=== PATIENT | female | born 1945 | race Hispanic/Latino ===

== ENCOUNTER → 2017-12-20 | Outpatient (CLI) | payer OTHER ==
[~2017-12-20] VITALS: Ht 154.9 cm; Wt 76.2 kg
[~2017-12-20] MED LIST: REGADENOSON 0.4 MG/5 ML PF SYG IVP SCH
== END | disposition home or self-care (01) ==
LOC: SHCH 07:50
PROVIDERS: ATTEND Internal Medicine Cardiovascular Disease
DX: I25.10 Atherosclerotic heart disease of native coronary artery without angina pectoris (principal); I73.9 Peripheral vascular disease, unspecified
CPT/HCPCS: 78452; 93017; 96374; A9500 ×2; J2785

== ENCOUNTER → 2017-12-23 | Outpatient (CLI) | payer OTHER | END | disposition home or self-care (01) | LOC: RAH 13:05 | PROVIDERS: ATTEND Internal Medicine Cardiovascular Disease | DX: M47.896 Other spondylosis, lumbar region (principal); M54.16 Radiculopathy, lumbar region; M48.061 Spinal stenosis, lumbar region without neurogenic claudication | CPT/HCPCS: 72148 ==

== ENCOUNTER → 2019-03-01 | Outpatient (CLI) | payer OTHER | END | disposition home or self-care (01) | LOC: RAH 09:43 | PROVIDERS: ATTEND Family Medicine | DX: Z12.31 Encounter for screening mammogram for malignant neoplasm of breast (principal) | CPT/HCPCS: 77067 ==

== ENCOUNTER → 2020-03-18 | Outpatient (CLI) | payer OTHER | END | disposition home or self-care (01) | LOC: RAH 08:54 | PROVIDERS: ATTEND Family Medicine | DX: Z12.31 Encounter for screening mammogram for malignant neoplasm of breast (principal); N63.11 Unspecified lump in the right breast, upper outer quadrant | CPT/HCPCS: 77067 ==

== ENCOUNTER → 2020-05-08 | Outpatient (CLI) | payer OTHER | END | disposition home or self-care (01) | LOC: RAH 08:04 | PROVIDERS: ATTEND Family Medicine | DX: N63.11 Unspecified lump in the right breast, upper outer quadrant (principal); R92.8 Other abnormal and inconclusive findings on diagnostic imaging of breast | CPT/HCPCS: 76641; 77065 ==

== ENCOUNTER → 2021-04-16 | Outpatient (CLI) | payer OTHER | END | disposition home or self-care (01) | LOC: RAH 14:12 | PROVIDERS: ATTEND Family Medicine | DX: Z12.31 Encounter for screening mammogram for malignant neoplasm of breast (principal) | CPT/HCPCS: 77067 ==

== ENCOUNTER → 2022-04-17 | Outpatient (CLI) | payer OTHER | END | disposition home or self-care (01) | LOC: RAH 09:26 | PROVIDERS: ATTEND Family Medicine | DX: Z12.31 Encounter for screening mammogram for malignant neoplasm of breast (principal) | CPT/HCPCS: 77067 ==

== ENCOUNTER 2022-07-13 12:47 | Emergency (ER) | payer OTHER ==
[~2022-07-13] VITALS: Ht 154.9 cm; Wt 73.0 kg
[2022-07-13 13:23] LABS: BASOPHILS % (AUTO) 0.3 % (0.0-5.0); EOSINOPHILS % (AUTO) 1.7 % (0.0-8.0); HEMATOCRIT 39.8 % (36-48); LYMPHOCYTES % (AUTO) 18.7 % (21.0-51.0); MEAN CORPUSCULAR HEMOGLOBIN 29.1 pg (27.0-33.0); MEAN CORPUSCULAR HGB CONC 33.4 g/dL (32.0-36.0); MEAN CORPUSCULAR VOLUME 87.1 fL (79-99); MONOCYTES % (AUTO) 7.5 % (3.0-13.0); NEUTROPHILS % (AUTO) 71.5 % (40.0-77.0); PLATELET COUNT (AUTO) 237 K/uL (130-400); RED BLOOD CELL COUNT(AUTO) 4.57 MIL/uL (4.00-5.50); RED CELL DISTRIBUTION WIDTH 13.4 % (11.0-15.5); WHITE BLOOD COUNT (AUTO) 11.6 K/uL (4.8-10.8)
[2022-07-13 13:28] LABS: APPEARANCE,URINE CLEAR (CLEAR); BILIRUBIN,URINE NEGATIVE (NEGATIVE); COLOR,URINE LIGHT-YELLOW (YELLOW); GLUCOSE, URINE (UA) TRACE mg/dL (NEGATIVE); KETONES,URINE NEGATIVE (NEGATIVE); LEUKOCYTE ESTERASE ,URINE NEGATIVE Leu/uL (NEGATIVE); NITRATE,URINE NEGATIVE (NEGATIVE); OCCULT BLOOD,URINE NEGATIVE (NEGATIVE); PROTEIN,URINE NEGATIVE (NEGATIVE); UROBILINOGEN,URINE 0.2 mg/dL (0.2-1.0)
[2022-07-13 13:32] LABS: CREATININE 0.9 mg/dL (0.5-1.5); POTASSIUM 4.2 mmol/L (3.5-5.1)
[2022-07-13 13:33] LABS: RBC,URINE 0-1 /HPF (0-1); WBC,URINE 0-1 /HPF (0-1)
[2022-07-13 13:37] LABS: ALBUMIN 4.1 g/dL (3.5-5.0); TOTAL PROTEIN, SERUM 8.3 g/dL (6.0-8.3)
[2022-07-13] MEDS ORDERED: DEXTROSE 50%-WATER 50 ML DISP.SYRIN IV ONE ×2 (15:23→15:30)
[2022-07-13] MEDS ORDERED: IOHEXOL-350 75 ML VIAL IV ONE (15:50)
[2022-07-13] MEDS ORDERED: POLY17PO4 PO (16:32)
[2022-07-13] MEDS ORDERED: DOCU-116 PO (16:32)
[2022-07-13 16:47] VITALS: BP 170/62
== END 2022-07-13 16:49 | disposition home or self-care (01) ==
LOC: EDH 12:47
DX: K59.00 Constipation, unspecified (principal); E11.9 Type 2 diabetes mellitus without complications; E78.00 Pure hypercholesterolemia, unspecified; Z98.890 Other specified postprocedural states; Z90.49 Acquired absence of other specified parts of digestive tract
CPT/HCPCS: 99285; 74177; 96374; 80053; 85025; 82948 ×2; 81001; 36415; J7070; Q9967

== ENCOUNTER → 2023-04-19 | Outpatient (CLI) | payer OTHER ==
[~2023-04-19] MED LIST changes: +DOCU-116 PO; +POLY17PO4 PO; -REGADENOSON 0.4 MG/5 ML PF SYG IVP SCH
== END | disposition home or self-care (01) ==
LOC: RAH 09:57
PROVIDERS: ATTEND Family Medicine
DX: Z12.31 Encounter for screening mammogram for malignant neoplasm of breast (principal); N63.41 Unspecified lump in right breast, subareolar
CPT/HCPCS: 77067

== ENCOUNTER → 2024-04-20 | Outpatient (CLI) | payer OTHER ==
--- NOTE | 2024-04-20 12:12 | HMCIMG ---
SCREENING MAMMOGRAM REASON: Annual Exam COMPARISON: 04/19/2023 TECHNIQUE: CC and MLO views of the bilateral breasts were performed.CAD was performed as well. FINDINGS: Parenchymal density: There are scattered areas of fibroglandular density. There are no focal mass lesions. There are no pathologic appearing calcifications. There is no evidence of architectural distortion or skin thickening. IMPRESSION: Normal screening mammogram The patient was entered into a reminder system with a target due date for their next mammogram. BI-RADS CATEGORY 1: NEGATIVE Recommend monthly self breast exam as well as annual clinical examination. A negative x-ray should not delay biopsy if a dominant or clinically suspicious mass is present, since 8-10% of cancers are not identified by mammography. Dense breasts particularly, may obscure an underlying neoplasm. Some of these may be detected clinically and therefore, clinical examination is an essential part of breast evaluation.
== END | disposition home or self-care (01) ==
LOC: RAH 08:55
PROVIDERS: ATTEND Family Medicine
DX: Z12.31 Encounter for screening mammogram for malignant neoplasm of breast (principal); R92.323 Mammographic fibroglandular density, bilateral breasts
CPT/HCPCS: 77067

== ENCOUNTER → 2024-08-08 | Outpatient (CLI) | payer OTHER ==
--- NOTE | 2024-08-08 10:14 | HMCIMG ---
MR SPINAL CANAL, LUMBAR WO CON HISTORY: Radiculopathy COMPARISON: None TECHNIQUE: MRI of the lumbar spine was performed utilizing multiple pulse sequences in axial , coronal and sagittal plane. Patient was not given contrast through intravenous route. FINDINGS: Endplate degenerative changes with disc space narrowings are seen worse at T10-11, T11-T12 and T12-L1 levels. No abnormal signal intensity is seen of the visualized bony structure. No loss of vertebral height is seen. There is straightening of normal lumbar curvature which may be related to muscle spasm or positioning. Degenerative disc signals are present at all lumbar spine levels. Visualized distal conus is unremarkable. There are multiple left renal cysts with the largest measuring 13 mm. At the T12-L1 level, there is spondylotic disc with bilateral ligamentum flavum hypertrophy causing anterior thecal sac compression with bilateral lateral recess stenosis and and mild bilateral neural foraminal stenosis. The thecal sac measures approximately 5.7 mm in its anterior posterior dimension. At the L1-L2 level, there is spondylotic disc with bilateral ligamentum flavum hypertrophy causing anterior thecal sac compression with bilateral lateral recess stenosis and and mild bilateral neural foraminal stenosis. The thecal sac measures approximately 7.2 mm in its anterior posterior dimension. At the L2-L3 level, there is spondylotic disc with bilateral ligamentum flavum hypertrophy causing anterior thecal sac compression with bilateral lateral recess stenosis and and mild bilateral neural foraminal stenosis. The thecal sac measures approximately 5.5 mm in its anterior posterior dimension. At the L3-L4 level, there is spondylotic disc with bilateral ligamentum flavum hypertrophy and disc protrusion causing anterior thecal sac compression with bilateral lateral recess stenosis and bilateral neural foraminal stenosis. The thecal sac measures approximately 4.2 mm in its anterior posterior dimension. At the L4-5 level, there is spondylotic disc with central disc protrusion/herniation, bilateral ligamentum flavum hypertrophy and bilateral facet hypertrophy causing anterior thecal sac compression with bilateral lateral recess stenosis and bilateral neural foraminal stenosis. The thecal sac measures approximately 3.5 mm in its anterior posterior dimension. At the L5-S1 level, there is spondylotic disc with central disc protrusion/herniation with bilateral ligamentum flavum hypertrophy causing anterior thecal sac compression with bilateral lateral recess stenosis and bilateral neural foraminal stenosis. The thecal sac measures approximately 4.8 mm in its anterior posterior dimension. IMPRESSION: 1. 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
== END | disposition home or self-care (01) ==
LOC: RAH 07:34
PROVIDERS: ATTEND Family Medicine
DX: M47.817 Spondylosis without myelopathy or radiculopathy, lumbosacral region (principal); M47.26 Other spondylosis with radiculopathy, lumbar region; M48.061 Spinal stenosis, lumbar region without neurogenic claudication; M47.25 Other spondylosis with radiculopathy, thoracolumbar region; M51.369 Other intervertebral disc degeneration, lumbar region without mention of lumbar back pain or lower extremity pain; N28.1 Cyst of kidney, acquired; M48.05 Spinal stenosis, thoracolumbar region
CPT/HCPCS: 72148

== ENCOUNTER 2025-03-19 23:59 | Emergency (ER) | payer OTHER ==
[~2025-03-19] VITALS: Ht 157.5 cm; Wt 59.0 kg
[2025-03-20 00:26] VITALS: TEMP 97.6
[2025-03-20 00:35] LABS: IMMATURE GRANULOCYTE ABSOLUTE 0.03 K/uL (0-1); NUCLEATED RED BLOOD CELLS 0.0 % (0.0-0.19); PLATELET COUNT (AUTO) 181 K/uL (130-400); RED BLOOD CELL COUNT(AUTO) 4.23 MIL/uL (4.00-5.50); RED CELL DISTRIBUTION WIDTH 13.0 % (11.0-15.5); WHITE BLOOD COUNT (AUTO) 8.0 K/uL (4.8-10.8)
[2025-03-20 00:45] LABS: CREATININE 0.8 mg/dL (0.5-1.0); GLOMERULAR FILTR. RATE CALC 76.0 mL/min (>90); GLUCOSE,RANDOM 166.0 mg/dL (70-105); SODIUM SERUM 130.0 mmol/L (136-145); UREA NITROGEN, BLOOD 12.0 mg/dL (7-18)
[2025-03-20 00:49] LABS: ASPARTATE AMINOTRANSFERASE 17.0 U/L (10-37); CREATINE KINASE, TOTAL 110.0 U/L (21-232); TOTAL PROTEIN, SERUM 8.0 g/dL (6.0-8.3)
--- NOTE | 2025-03-20 00:49 | ERN ---
ED Note History of Present Illness Stated Complaint: C/O ABD PAIN,NAUSEA, LEFT SHOULDER PAIN Chief Complaint: Abdominal Pain Time Seen by MD: 00:17 Time Seen by Midlevel: 00:17 Dictation: The patient is a 79-year-old female with a history of diabetes, hysterectomy who presents to the emergency department with multiple complaints. Patient reports that she started with nontraumatic left shoulder pain that radiates to her left chest onset today. Patient reports associated nausea and an episode of dizzine ss. Patient also reports generalized abdominal pain and weakness. Denies any vomiting, denies any falls or recent injuries, denies any fevers, reports history of constipation reports she had two bowel movements today. Patient denies any current dizziness. Allergies: Coded Allergies: No Known Drug Allergies (Unverified Allergy, Unknown, 12/17/17) Home Meds Active Scripts Polyethylene Glycol 3350 (Miralax) 17 Gm Powd.pack, 17 GM PO DAILY for constipation, #20 PACKET 0 Refills Prov:BRYAN CORDERO MD 07/13/22 Docusate Sodium (Colace) 100 Mg Capsule, 100 MG PO TID for constipation, #30 CAP 0 Refills Prov:BRYAN CORDERO MD 07/13/22 Past Medical History Past Medical History: Diabetes-Type II, High Cholesterol Surgical History: Hysterectomy, Other Surgical History Other: NECK SURGERY Social History: Negative, Lives with family RN Note Reviewed/Agreed w/PFSH: Yes Review of System Dictation Constitutional: Negative for fever,chills, and weight loss Eyes: Negative for injury, pain,redness, and discharge ENT: Negative for injury,pain or swelling Cardiovascular: Negative for palpitations, and edema positive for chest pain Respiratory: Negative for shortness of breath, cough, and wheezing, Abdomen/GI: Negative for vomiting, diarrhea, and constipation positive for abdominal pain, nausea Back: Negative for injury and pain : Negative for injury, bleeding and discharge MS/Extremity: Negative for injury and deformity positive for left shoulder pain Skin: Negative for rash, and discoloration Neuro: Negative for headache, weakness, numbness, tingling, and seizure Psych: Negative for suicide ideation, homicidal ideation, and hallucinations Initial Vital Sign VS Vital Signs Date Time Temp Pulse Resp B/P (MAP) Pulse Ox O2 Delivery O2 Flow Rate FiO2 03/20/25 00:02 97.2 86 20 183/84 100 Room Air 03/20/25 00:26 0 21 Physical Exam Dictation Vital Signs reviewed General Appearance: Alert, oriented x 3, no acute distress, well developed, nourished. Head and Face: non-traumatic. Eyes: PERRL, pink conjunctivas, eyelid no trauma, anterior chamber with arcus senilis. Ears: Pinnas intact and no signs of trauma or erythema ear canals clear and no discharge TM no erythema Nose: No discharge, no bleeding. Oropharynx: Mouth normal, tongue pink. pharynx clear,no erythema, tonsils no exudates, no abscesses noted, mucous membrane moist Neck: Supple, non-tender, no thyromegaly, no masses, no JVD, no bruits Breast:Deferred Chest:No tenderness, no crepitus, no paradoxical movement, no retractions Lungs:Clear, well-ventilated, symmetric, no rales, no wheezing, no rhonchi, no stridor, good breath sounds bilaterally Heart: Regular rate, regular rhythm, no murmur, no gallops Vascular: no peripheral edema, Abdomen: Soft, positive bowel sounds, nondistended, no guarding, nontender, no rebound, no masses no hepatomegaly, no splenomegaly, no Nolan's sign, no hernias. Rectal: Deferred Genital: Deferred Neurological: Normal speech, motor function intact, sensory function intact , upper extremities equal in strength, lower extremities equal in strength Musculoskeletal: Neck nontender, full range of motion, back nontender, full range of motion, Extremities: nontender, full range of motion Skin: Color pink, dry, no turgor, no rash, no lacerations, no abrasions, no contusions. Lymphatic: Deferred Results (Laboratory/Radiology) Laboratory/Radiology Laboratory Tests Test 03/20/25 00:25 03/20/25 00:36 03/20/25 02:04 White Blood Count 8.0 K/uL (4.8-10.8) Red Blood Count 4.23 MIL/uL (4.00-5.50) Hemoglobin 12.4 g/dL (12.0-16.0) Hematocrit 36.0 % (36-48) Mean Corpuscular Volume 85.1 fL (79-99) Mean Corpuscular Hemoglobin 29.3 pg (27.0-33.0) Mean Corpuscular Hemoglobin Concent 34.4 g/dL (32.0-36.0) Red Cell Distribution Width 13.0 % (11.0-15.5) Platelet Count 181 K/uL (130-400) Mean Platelet Volume 9.9 fL (7.5-10.5) Immature Granulocyte % (Auto) 0.4 % (0-1) Neutrophils (%) (Auto) 64.6 % (40.0-77.0) Lymphocytes (%) (Auto) 20.9 % (21.0-51.0) L Monocytes (%) (Auto) 9.6 % (3.0-13.0) Eosinophils (%) (Auto) 3.9 % (0.0-8.0) Basophils (%) (Auto) 0.6 % (0.0-5.0) Neutrophils # (Auto) 5.2 K/uL (1.8-7.7) Lymphocytes # (Auto) 1.7 K/uL (1.0-4.8) Monocytes # (Auto) 0.8 K/uL (0.1-1.0) Eosinophils # (Auto) 0.31 K/uL (0.00-0.70) Basophils # (Auto) 0.05 K/uL (0.00-0.20) Absolute Immature Granulocyte (auto 0.03 K/uL (0-1) Nucleated Red Blood Cells 0.0 % (0.0-0.19) Sodium Level 130 mmol/L (136-145) L Potassium Level 4.1 mmol/L (3.5-5.1) Chloride Level 94 mmol/L (101-111) L Carbon Dioxide Level 30 mmol/L (21-32) Blood Urea Nitrogen 12 mg/dL (7-18) Creatinine 0.8 mg/dL (0.5-1.0) Glomerular Filtration Rate Calc 76 mL/min (>90) Random Glucose 166 mg/dL (70-105) H Total Calcium 9.5 mg/dL (8.5-10.1) Total Bilirubin 0.4 mg/dL (0.2-1.0) Direct Bilirubin 0.1 mg/dL (0.0-0.3) Aspartate Amino Transf (AST/SGOT) 17 U/L (10-37) Alanine Aminotransferase (ALT/SGPT) 17 U/L (12-78) Alkaline Phosphatase 81 U/L (50-136) Total Creatine Kinase 110 U/L (21-232) Troponin I High Sensitivity 6 ng/L (4-50) 6 ng/L (4-50) Total Protein 8.0 g/dL (6.0-8.3) Albumin 4.2 g/dL (3.5-5.0) Lipase 30 U/L (16-77) Urine Color COLORLESS (YELLOW) Urine Appearance CLEAR (CLEAR) Urine pH 7.5 (5.0-8.0) Urine Specific [place] 1.004 (1.001-1.031) Urine Protein NEGATIVE mg/dL (NEGATIVE) Urine Glucose (UA) 70 mg/dL (NEGATIVE) H Urine Ketones NEGATIVE mg/dL (NEGATIVE) Urine Occult Blood NEGATIVE (NEGATIVE) Urine Nitrate NEGATIVE (NEGATIVE) Urine Bilirubin NEGATIVE mg/dL (NEGATIVE) Urine Urobilinogen 0.2 mg/dL (0.2-1.0) Urine Leukocyte Esterase NEGATIVE [place]/uL Urine RBC 0-1 /HPF (0-1) Urine WBC 0-1 /HPF (0-1) Urine Squamous Epithelial Cells RARE /HPF (0-2) Urine Bacteria None /HPF (None Seen) REASON: ABD PAIN ORDERING PHYSICIAN: ZACH BURGOS [employer]OLLEY DRIVER PROCEDURE: ABD PEL WO - CT ABDOMEN/PELVIS W/O CONTRAST EXAM: CT Abdomen and Pelvis without V contrast CLINICAL HISTORY: Pain. TECHNIQUE: Thin collimated axial CT images of the abdomen and pelvis were obtained, with sagittal and coronal reformatted images also submitted. CT scan is done according to ALARA (As Low As Reasonably Achievable). CONTRAST: None COMPARISON: Prior CT abdomen and pelvis dated July 13, 2022. FINDINGS: Unremarkable visualized lung parenchyma. Scattered coronary artery calcifications. Normal cardiac size. No focal abnormality within the liver, gallbladder, pancreas, spleen, adrenals, or kidneys. There is no obvious bowel wall thickening. Bowel loops are normal in caliber without evidence of obstruction or ileus. The appendix is normal. There is no abnormality within the urinary bladder. Post-hysterectomy status. No adnexal mass. The aorta and IVC are limited in evaluation due to a lack of intravenous contrast. Diffuse atherosclerotic calcification of the origin of the left renal artery, infrarenal aorta, and common iliac arteries. No lymphadenopathy. No free fluid. There is no acute osseous abnormality. Multilevel degenerative facet arthropathy in the lumbar spine. Moderate spinal canal stenosis at the L4-L5 level. Degenerative changes in the bilateral sacroiliac and superolateral hip joint. IMPRESSIONS: No acute process in the abdomen or pelvis. Diffuse atherosclerotic vascular disease of the abdominal aorta and branches as described. Compared with the prior study, there is no significant change in the interval. /[place] REASON: pain ORDERING PHYSICIAN: ZACH BURGOS [employer]OLLEY [employer]IVER PROCEDURE: SHOL 2V LT - SHOULDER COMP 2+VWS LT EXAM: CR left Shoulder, 3 Views. CLINICAL HISTORY: pain COMPARISON: None provided. FINDINGS: BONES: No acute fracture or aggressively appearing osseous lesion. JOINTS: No dislocation. There is evidence of a mildly reduced left acromio-clavicular joint space, a few osteophytes, and mild soft tissue swelling around the joint space, suggestive of degenerative sequelae. A few osteophytes are also seen around the humeral head. SOFT TISSUES: The soft tissues are unremarkable. IMPRESSION: No acute abnormality was evident on examination of the right shoulder. No acute fracture or dislocation. Mild degenerative osteoarthritis of the left acromio-clavicular and gleno-humeral joint. /[place] REASON: pain ORDERING PHYSICIAN: ZACH BURGOS PROCEDURE: CXR1VW - CHEST 1VW EXAM: CR Chest, 1 View. CLINICAL HISTORY: pain COMPARISON: Compared with the previous X-ray. FINDINGS: LUNGS: There is no mass, infiltrate, or acute pulmonary abnormality. PLEURAL SPACES: No evidence of pleural effusion or pneumothorax. MEDIASTINUM: The cardiomediastinal silhouette is within normal limits. BONES: No acute osseous abnormality. IMPRESSION: No acute cardiopulmonary pathology is evident. No significant interval changes /[place] Labs Reviewed?: Yes EKG: (+) rhythm (Sinus rhythm ) EKG Comment: Date:03/20/2025 Time:0024 Ventricular rate:82 GA interval:203 QRS duration:82 QT/QTc:369/431 EKG interpretation: Sinus rhythm Reviewed by ED Attending no STEMI ED Course ED Course Orders Procedure Category Date Status Time Vital Signs Per CPOE 03/20/25 Transmitted Routine 00:14 Saline Lock Iv CPOE 03/20/25 Transmitted 00:14 Cbc With Differential LAB 03/20/25 Complete 00:14 Lipase LAB 03/20/25 Complete 00:14 Urinalysis Profile LAB 03/20/25 Complete 00:14 Basic Metabolic Panel LAB 03/20/25 Complete 00:14 12 Lead Ekg Tracing- EKG 03/20/25 Logged Technical 00:30 Troponin I High LAB 03/20/25 Complete Sensitivity 00:32 Chest 1vw RAD 03/20/25 Resulted 00:32 Shoulder Comp 2+Vws Lt RAD 03/20/25 Resulted 00:32 Pantoprazole 40mg Inj PHA 03/20/25 Complete (Protonix 40mg Inj 01:00 Ondansetron 4mg Inj PHA 03/20/25 Complete (Zofran 4mg Inj) 01:00 0.9%Nacl 1000ml (Ns PHA 03/20/25 In Process 1000ml) 01:00 Creatine Kinase, Total LAB 03/20/25 Complete 00:25 Hepatic Function Panel LAB 03/20/25 Complete 00:25 Ct Abdomen/Pelvis W/O CT 03/20/25 Resulted Contrast 00:55 Troponin I High LAB 03/20/25 Complete Sensitivity 01:55 Current Medications Medications (Trade) Dose Ordered Sig/Fly Route PRN Reason Start Time Stop Time Status Last Admin Dose Admin Ondansetron HCl (zoFRAN 4MG INJ) 4 mg ONCE ONCE IVP 03/20/25 01:00 03/20/25 01:01 DC 03/20/25 01:39 Pantoprazole Sodium (PROTonix 40MG INJ) 40 mg ONCE ONCE IVP 03/20/25 01:00 03/20/25 01:01 DC 03/20/25 01:39 Sodium Chloride 1,000 ml @ 125 mls/hr ONCE ONCE IV 03/20/25 01:00 03/20/25 08:59 03/20/25 01:38 Vital Signs Date Time Temp Pulse Resp B/P (MAP) Pulse Ox O2 Delivery O2 Flow Rate FiO2 03/20/25 01:25 76 16 161/61 98 Room Air* 0 03/20/25 00:26 97.5 88 17 181/61 98 Room Air* 0 03/20/25 00:02 97.2 86 20 183/84 100 Room Air HEART Score Response (Comments) Value History: Low suspicion (0) 0 EKG: Normal 0 Age: > 65yrs (+2) 2 Risk Factors: 1-2 risk factors (+1) 1 Initial Troponin: Normal limit (0) 0 Total 3 Medical Decision Making [facility] MDM: The patient is a 79-year-old female with a history of diabetes, hysterectomy who presents to the emergency department with multiple complaints. Patient reports that she started with nontraumatic left shoulder pain that radiates to her left chest onset today. Patient reports associated nausea and an episode of dizziness. Patient also reports generalized abdominal pain and weakness. Denies any vomiting, denies any falls or recent injuries, denies any fevers, reports history of constipation reports she had two bowel movements today. Patient denies any current dizziness. CBC showed no leukocytosis, no anemia, chemistry showed mild hyponatremia, hypochloremia, normal lipase,, normal liver enzymes, urinalysis unremarkable. Troponins were negative x2 abdomen CT showed no acute pathology. Chest x-ray showed no acute pathology. Shoulder x-ray showed osteoarthritis of the left shoulder. Patient's pain is exacerbated with movement. Patient otherwise in no acute distress, nontoxic appearance. We will be discharged to follow up with PCP. Differential diagnosis: ACS, arthritis of the shoulder, shoulder dislocation, gastroenteritis, gastritis, pancreatitis Need for hospitalization: Patient does not meet criteria for hospitalization. There are no social concerns with this patient. DX & DISP Disposition: Discharge Departure Impression: Primary Impression: Abdominal pain Additional Impression: Osteoarthritis of left shoulder Condition: Stable Scripts Acetaminophen (Tylenol) 325 Mg Tablet 1-2 TAB PO QIDP PRN for pain or fever for 7 Days, #60 TAB 0 Refills Prov: ZACH BURGOS [employer]OLLEY [employer]IVER 03/20/25 Ondansetron (Ondansetron Odt) 4 Mg Tab.rapdis 4 MG PO Q6HPRN PRN for nausea, #7 TAB 0 Refills Prov: ZACH BURGOS [employer]OLLEY DRIVER 03/20/25 Additional Instructions: Your labs were unremarkable. Your chest x-ray not show any abnormalities. Your shoulder x-ray did show you have some arthritis severe left shoulder. The CT scan did not show any acute pathology. Please follow up with your primary doctor in 1-2 days. If anything worsens please return to ER. FOLLOW-UP WITH PRIMARY CARE PROVIDER IN 1 TO 2 DAYS. TAKE MEDICATIONS DIRECTED HERE IN THE EMERGENCY ROOM. OKAY TO CONTINUE HOME MEDICATIONS UNLESS OTHERWISE DISCUSSED DURING YOUR VISIT IN THE EMERGENCY ROOM TODAY. RETURN TO YOUR NEAREST EMERGENCY ROOM IF SYMPTOMS WORSEN OR IF THERE IS NO IMPROVEMENT. CALL 911 IF YOU NEED IMMEDIATE ASSISTANCE. TAKE TYLENOL [id number] NEEDED AND IF NO CONTRAINDICATIONS ARE PRESENT. INCREASE ORAL HYDRATION. A WOUND CULTURE OR URINE CULTURE WAS ORDERED HERE IN THE EMERGENCY ROOM DEPARTMENT PLEASE FOLLOW-UP WITH PRIMARY CARE PROVIDER AND ADVISE THEM TO GET REPEAT PORTS FROM OUR FACILITY. IF YOU HAD ANY LEN WRAP/SPLINTS THAT WERE APPLIED HERE, PLEASE DO NOT REMOVE THEM UNTIL YOU SEE YOUR PRIMARY CARE OR SPECIALTY. Referrals: SHUN PATEL MD (PCP) GLORIA MANNING MD Time of Disposition: 03:05 I have reviewed the case, and I agree with, Diagnosis and Plan ZACH BURGOS [employer] TROLLEY DRIVER Mar 20, 2025 00:49
[2025-03-20 01:00] LABS: ADD UA MICROSCOPIC YES; APPEARANCE,URINE CLEAR (CLEAR); GLUCOSE, URINE (UA) 70 mg/dL (NEGATIVE); LEUKOCYTE ESTERASE ,URINE NEGATIVE Leu/uL (NEGATIVE); NITRATE,URINE NEGATIVE (NEGATIVE); OCCULT BLOOD,URINE NEGATIVE (NEGATIVE)
[2025-03-20 01:01] LABS: SQUAMOUS EPITHELIAL CELL,UR RARE /HPF (0-2)
--- NOTE | 2025-03-20 01:33 | HMCIMG ---
EXAM: CR Chest, 1 View. CLINICAL HISTORY: pain COMPARISON: Compared with the previous X-ray. FINDINGS: LUNGS: There is no mass, infiltrate, or acute pulmonary abnormality. PLEURAL SPACES: No evidence of pleural effusion or pneumothorax. MEDIASTINUM: The cardiomediastinal silhouette is within normal limits. BONES: No acute osseous abnormality. IMPRESSION: No acute cardiopulmonary pathology is evident. No significant interval changes /[place]
--- NOTE | 2025-03-20 01:33 | HMCIMG ---
EXAM: CR left Shoulder, 3 Views. CLINICAL HISTORY: pain COMPARISON: None provided. FINDINGS: BONES: No acute fracture or aggressively appearing osseous lesion. JOINTS: No dislocation. There is evidence of a mildly reduced left acromio-clavicular joint space, a few osteophytes, and mild soft tissue swelling around the joint space, suggestive of degenerative sequelae. A few osteophytes are also seen around the humeral head. SOFT TISSUES: The soft tissues are unremarkable. IMPRESSION: No acute abnormality was evident on examination of the right shoulder. No acute fracture or dislocation. Mild degenerative osteoarthritis of the left acromio-clavicular and gleno-humeral joint. /[place]
[2025-03-20] MEDS: 0.9%NACL 1000ML 1,000 ML IV ONE (01:38)
--- NOTE | 2025-03-20 02:58 | HMCIMG ---
EXAM: CT Abdomen and Pelvis without V contrast CLINICAL HISTORY: Pain. TECHNIQUE: Thin collimated axial CT images of the abdomen and pelvis were obtained, with sagittal and coronal reformatted images also submitted. CT scan is done according to ALARA (As Low As Reasonably Achievable). CONTRAST: None COMPARISON: Prior CT abdomen and pelvis dated July 13, 2022. FINDINGS: Unremarkable visualized lung parenchyma. Scattered coronary artery calcifications. Normal cardiac size. No focal abnormality within the liver, gallbladder, pancreas, spleen, adrenals, or kidneys. There is no obvious bowel wall thickening. Bowel loops are normal in caliber without evidence of obstruction or ileus. The appendix is normal. There is no abnormality within the urinary bladder. Post-hysterectomy status. No adnexal mass. The aorta and IVC are limited in evaluation due to a lack of intravenous contrast. Diffuse atherosclerotic calcification of the origin of the left renal artery, infrarenal aorta, and common iliac arteries. No lymphadenopathy. No free fluid. There is no acute osseous abnormality. Multilevel degenerative facet arthropathy in the lumbar spine. Moderate spinal canal stenosis at the L4-L5 level. Degenerative changes in the bilateral sacroiliac and superolateral hip joint. IMPRESSIONS: No acute process in the abdomen or pelvis. Diffuse atherosclerotic vascular disease of the abdominal aorta and branches as described. Compared with the prior study, there is no significant change in the interval. /[place]
[2025-03-20] MEDS ORDERED: ACET-2247 PO (03:05)
[2025-03-20] MEDS ORDERED: ONDA-243 PO (03:05)
[2025-03-20 04:19] VITALS: BP 168/72; PULSE 73; RESP 15; O2SAT 98
--- NOTE | 2025-03-20 07:26 | EKG ---
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
== END 2025-03-20 04:27 | disposition home or self-care (01) ==
LOC: EDH 23:59
DX: R10.84 Generalized abdominal pain (principal); M19.012 Primary osteoarthritis, left shoulder; R42 Dizziness and giddiness; R53.1 Weakness; E11.9 Type 2 diabetes mellitus without complications; E78.00 Pure hypercholesterolemia, unspecified; Z90.710 Acquired absence of both cervix and uterus
CPT/HCPCS: 99285; 82550; 80076; 84484 ×2; 80048; 83690; 85025; 81001; 36415; 74176; 96374; 71045; 96375; 73030; 93005; J7030; J2405; J2470